=== PATIENT | male | born 1970 | race Caucasian/White ===

== ENCOUNTER 2020-09-21 09:45 | Emergency (ER) | payer SELFPAY ==
--- NOTE | 2020-09-21 10:27 | RAD REPORT ---
EXAM DESCRIPTION: RAD - Chest Single View - 09/21/2020 10:21 am CLINICAL HISTORY: COUGH COMPARISON: No comparisons FINDINGS: No evidence of edema or pneumonia. The heart size is within normal limits.No acute osseous abnormality. No significant pleural effusions or pneumothorax. IMPRESSION: No acute cardiopulmonary disease.
[2020-09-21 10:33] LABS: Urine Blood Trace-intact (Negative); Urine Glucose Negative (Negative); Urine Protein 2+ (Negative); Urine Specific Gravity 1.015 (1.005-1.030)
--- NOTE | 2020-09-21 10:33 | EDPHYS ---
Physician Documentation [facility] Name: Roland Ayala Age: 50 yrs Sex: Male : 1970 Arrival Date: 09/21/2020 Time: 09:52 Bed 17 Private MD: TATIANA Physician Raul Patterson HPI: 09/21 10:02 This 50 yrs old Male presents to ER via Unassigned with complaints of falls sam and etoh abuse. 10:02 Details of fall: The patient fell from an upright position, while walking. Onset: The sam symptoms/episode began/occurred just prior to arrival. Associated injuries: The patient sustained no obvious injury. The patient presents with confusion. Onset: The symptoms/episode began/occurred 2 day(s) ago. Possible causes: alcohol, has a history of chronic alcohol abuse. The patient presents with dizziness, generalized weakness. Context: occurred at home. Associated signs and symptoms: Pertinent positives: ataxia, head injury. 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 - Family history:: not pertinent. - Social history:: Smoking status: Patient reports use of chewing tobacco. Patient uses alcohol, on a daily basis. Patient/guardian denies using street drugs. ROS: 10:02 Constitutional: Negative for fever, chills, and weight loss, Eyes: Negative for injury, sam pain, redness, and discharge, ENT: Negative for injury, pain, and discharge, Neck: Negative for injury, pain, and swelling, Cardiovascular: Negative for chest pain, palpitations, and edema, Respiratory: Negative for shortness of breath, cough, wheezing, and pleuritic chest pain, Abdomen/GI: Negative for abdominal pain, nausea, vomiting, diarrhea, and constipation, Back: Negative for injury and pain, : Negative for injury, bleeding, discharge, and swelling, MS/Extremity: Negative for injury and deformity, Psych: Negative for depression, anxiety, suicide ideation, homicidal ideation, and hallucinations, Allergy/Immunology: Negative for hives, rash, and allergies, Endocrine: Negative for neck swelling, polydipsia, polyuria, polyphagia, and marked weight changes, Hematologic/Lymphatic: Negative for swollen nodes, abnormal bleeding, and unusual bruising. 10:02 Skin: Positive for ecchymosis, of the right arm and left arm. 10:02 Neuro: Positive for altered mental status, dizziness, gait disturbance, weakness. Exam: 10:02 Constitutional: This is a well developed, well nourished patient who is awake, alert, sam and in no acute distress. Head/Face: Normocephalic, atraumatic. Eyes: Pupils equal round and reactive to light, extra-ocular motions intact. Lids and lashes normal. Conjunctiva and sclera are non-icteric and not injected. Cornea within normal limits. Periorbital areas with no swelling, redness, or edema. ENT: Nares patent. No nasal discharge, no septal abnormalities noted. Tympanic membranes are normal and external auditory canals are clear. Oropharynx with no redness, swelling, or masses, exudates, or evidence of obstruction, uvula midline. Mucous membranes moist. Neck: Trachea midline, no thyromegaly or masses palpated, and no cervical lymphadenopathy. Supple, full range of motion without nuchal rigidity, or vertebral point tenderness. No Meningismus. Chest/axilla: Normal chest wall appearance and motion. Nontender with no deformity. No lesions are appreciated. Cardiovascular: Regular rate and rhythm with a normal S1 and S2. No gallops, murmurs, or rubs. Normal PMI, no JVD. No pulse deficits. Respiratory: Lungs have equal breath sounds bilaterally, clear to auscultation and percussion. No rales, rhonchi or wheezes noted. No increased work of breathing, no retractions or nasal flaring. Abdomen/GI: Soft, non-tender, with normal bowel sounds. No distension or tympany. No guarding or rebound. No evidence of tenderness throughout. Back: No spinal tenderness. No costovertebral tenderness. Full range of motion. Male : Normal genitalia with no discharge or lesions. Psych: Awake, alert, with orientation to person, place and time. Behavior, mood, and affect are within normal limits. 10:02 Skin: injury, abrasion(s), contusion(s), that are superficial, of the right arm and left arm. 10:02 Neuro: Orientation: to person, place, Not oriented to time, situation, Mentation: slow to respond, confused, Memory: immediate memory is impaired, remote memory is impaired, recent memory is impaired, Cranial nerves: is grossly normal based on the patient's age, no acute changes, Cerebellar function: unable to test, Sensation: is normal, no obvious gross deficits, appropriate no acute changes, Gait: not tested. Babinski testing is normal, seizure activity, is not displayed by the patient. 10:16 ECG was reviewed by the Attending Physician. [facility] Vital Signs: 10:06 BP 96 / 52; Pulse 82; Resp 18; Temp 98.6(O); Pulse Ox 98% on R/A; Pain 0/10; ap3 10:36 BP 94 / 68; Pulse 73; Resp 16; Pulse Ox 95% on R/A; ap3 11:21 BP 135 / 75; Pulse 76; Resp 18; Pulse Ox 98% on R/A; ap3 MDM: 09:52 Patient medically screened. [facility] 10:06 Differential diagnosis: abrasion, closed head injury, contusion, fracture, multiple sam trauma, alcohol intoxication, hypoglycemia, overdose, sepsis, TIA, UTI, volume depletion, cardiac arrhythmia, CVA, generalized weakness, GI bleed, head injury, sepsis, syncope. Data reviewed: vital signs, nurses notes, EMS record, lab test result(s), EKG, radiologic studies, CT scan, plain films. Data interpreted: lining vamper: rate is 89 beats/min, rhythm is regular, Pulse oximetry: on room air is 100 %. Test interpretation: by ED physician or midlevel provider: ECG, plain radiologic studies. Counseling: I had a detailed discussion with the patient and/or guardian regarding: the historical points, exam findings, and any diagnostic results supporting the discharge/admit diagnosis, lab results, radiology results. 09/21 09:55 Order name: Basic Metabolic Panel [facility] 09/21 09:55 Order name: CBC with Diff [facility] 09/21 09:55 Order name: LFT's [facility] 09/21 09:55 Order name: Magnesium [facility] 09/21 09:55 Order name: NT PRO-BNP [facility] 09/21 09:55 Order name: PT-INR [facility] 09/21 09:55 Order name: Troponin (emerg Dept Use Only) [facility] 09/21 09:55 Order name: Lipase [facility] 09/21 09:55 Order name: Acetaminophen [facility] 09/21 09:55 Order name: ETOH Level [facility] 09/21 09:55 Order name: Ptt, Activated [facility] 09/21 09:55 Order name: Salicylate [facility] 09/21 09:55 Order name: Basic Metabolic Panel [facility] 09/21 09:55 Order name: XRAY Chest (1 view) [facility] 09/21 09:55 Order name: Cardiac monitoring; Complete Time: 10:06 [facility] 09/21 09:55 Order name: EKG - Nurse/Tech; Complete Time: 10:33 [facility] 09/21 09:55 Order name: IV Saline Lock; Complete Time: 10:06 [facility] 09/21 09:55 Order name: CT Head C Spine [facility] 09/21 09:55 Order name: CBC with Automated Diff [facility] 09/21 09:55 Order name: Liver (Hepatic) Function [facility] 09/21 09:55 Order name: Magnesium [facility] 09/21 10:33 Order name: Urine Dipstick-Ancillary [facility] 09/21 09:55 Order name: Labs collected and sent; Complete Time: 10:06 [facility] 09/21 09:55 Order name: O2 Per Protocol; Complete Time: 10:06 [facility] 09/21 09:55 Order name: O2 Sat Monitoring; Complete Time: 10:06 [facility] 09/21 09:55 Order name: Suicide Screening ([place]); Complete Time: 10:51 [facility] 09/21 09:55 Order name: Urine Dipstick-Ancillary (obtain specimen); Complete Time: 10:31 [facility] EC:16 Rate is 80 beats/min. Rhythm is regular. QRS Spurger is Normal. PA interval is normal. QRS sam interval is normal. QT interval is normal. No Q waves. T waves are Normal. No ST changes noted. Clinical impression: NSR w/ Non-specific ST/T Changes and No evidence of ischemia. Interpreted by me. Reviewed by me. Administered Medications: 10:49 Drug: NS 0.9% 1000 ml Route: IV; Rate: 1 bolus; Site: right forearm; ap3 11:37 Follow up: Response: No adverse reaction; IV Status: Completed infusion; IV Intake: ap3 1000ml 10:49 Drug: Thiamine 100 mg Route: IV; Rate: bolus; Site: right forearm; ap3 11:37 Follow up: IV Status: Completed infusion ap3 10:49 Drug: ProTONIX (pantoprazole) 40 mg Route: IVP; Site: right forearm; ap3 11:37 Follow up: Response: No adverse reaction ap3 11:06 Drug: Banana Bag - (NS 0.9% 1000 ml, foLIC Acid 1 mg, Thiamine 100 mg, Multivitamin 1 ap3 amp) Route: IV; Rate: 125 ml/hr; Site: right forearm; 11:36 Follow up: IV Status: Infusion continued upon transfer ap3 11:06 Drug: Vitamin K1 (phytonadione) 5 mg Route: Sub-Q; Site: abdomen; ap3 11:38 Follow up: Response: No adverse reaction ap3 Disposition Summary: 09/21/20 10:32 Transfer Ordered Transfer Location: [facility] Reason: Higher level of care sam Condition: Stable sam Problem: new sam Symptoms: have improved sam Accepting Physician: axel [place] (09/21/20 11:40) ap3 Diagnosis - Traumatic subdural hemorrhage sam - Alcohol abuse with intoxication sam - Repeated falls sam Forms: - Medication Reconciliation Form sam - SBAR form sam Signatures: Dispatcher [employer] EDRaul Perry MD MD cha Prokisch, Amanda, RN RN ap3 Corrections: (The following items were deleted from the chart) 10: 10:20 PMHx: Unable to Obtain; ap3 ap3 10:22 10:20 PSHx: Unable to Obtain; ap3 ap3 11:40 10:32 to [facility] ap3
--- NOTE | 2020-09-21 10:33 | ER ---
Nurse's Notes [facility] Name: Roland Ayala Age: 50 yrs Sex: Male : 1970 Arrival Date: 09/21/2020 Time: 09:52 Bed 17 Private MD: Diagnosis: Traumatic subdural hemorrhage;Alcohol abuse with intoxication;Repeated falls Presentation: 09/21 10:06 Chief complaint: EMS states: patient has been in treatment for alcoholism for a few ap3 days. patient was released yesterday, went to a bar with a friend where he had a "few drinks". Patient was arrested last night and it is reported he fell 3 times while in custody. Patient states he has a history of frequent falls. Coronavirus screen: At this time, the client does not indicate any symptoms associated with coronavirus-19. Ebola Screen: No symptoms or risks identified at this time. Initial Sepsis Screen: Does the patient meet any 2 criteria? No. Patient's initial sepsis screen is negative. Does the patient have a suspected source of infection? No. Patient's initial sepsis screen is negative. Risk Assessment: Do you want to hurt yourself or someone else? Patient reports no desire to harm self or others. Onset of symptoms was September 21, 2020. Care prior to arrival: None. 10:06 Method Of Arrival: EMS ap3 10:06 Acuity: ALMA 3 ap3 Triage Assessment: 10:10 General: Appears in no apparent distress. comfortable, Behavior is calm, cooperative. ap3 Pain: Denies pain. EENT: No signs and/or symptoms were reported regarding the EENT system. Neuro: Level of Consciousness is awake, alert, obeys commands, Oriented to person, place, time, situation, patient is AOx4. However patient is not certain of the details of events that occurred last night. . Cardiovascular: Denies chest pain, lightheadedness, shortness of breath, Capillary refill < 3 seconds Patient's skin is warm and dry. Respiratory: Airway is patent Respiratory effort is even, unlabored, Respiratory pattern is regular, symmetrical. GI: No signs and/or symptoms were reported involving the gastrointestinal system. : No signs and/or symptoms were reported regarding the genitourinary system. Derm: Wound noted right arm Wound is abraision on right elbow. discoloration on right forearm. 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 - Family history:: not pertinent. - Social history:: Smoking status: Patient reports use of chewing tobacco. Patient uses alcohol, on a daily basis. Patient/guardian denies using street drugs. Screenin:12 Abuse screen: Denies threats or abuse. Nutritional screening: No deficits noted. ap3 Tuberculosis screening: No symptoms or risk factors identified. Fall Risk None identified. Fall in past 12 months (25 points). Secondary diagnosis (15 points) impaired mobility, alcoholism. IV access (20 points). Ambulatory Aid- None/Bed Rest/Nurse Assist (0 pts). Gait- Impaired (20 pts.). Mental Status- Oriented to own ability (0 pts). Total Velez Fall Scale indicates High Risk Score (45 or more points). Fall prevention measures have been instituted. Side Rails Up X 2 Placed Close to Nursing Station Frequent Obs/Assessments Occuring As available patient and family educated on Fall Prevention Program and Strategies. Assessment: 10:14 Reassessment: see triage assessment. ap3 10:52 Reassessment: Patient and/or family updated on plan of care and expected duration. Pain ap3 level reassessed. patient is alert, oriented X 4. however he is still confused on past events. He knows his name, , where he is, and time. Patient was updated on current plan of care. 11:04 Reassessment: report called to [facility] to Charlie. ap3 Vital Signs: 10:06 BP 96 / 52; Pulse 82; Resp 18; Temp 98.6(O); Pulse Ox 98% on R/A; Pain 0/10; ap3 10:36 BP 94 / 68; Pulse 73; Resp 16; Pulse Ox 95% on R/A; ap3 11:21 BP 135 / 75; Pulse 76; Resp 18; Pulse Ox 98% on R/A; ap3 ED Course: 09:52 Patient arrived in ED. em1 09:52 Raul Patterson MD is Attending Physician. [facility] 09:58 Inserted saline lock: 20 gauge in right forearm, using aseptic technique. Blood ap3 collected. 10:05 Misty Estrada, LEMUEL is Primary Nurse. ap3 10:09 Triage completed. ap3 10:13 Arm band placed on right wrist. ap3 10:13 Patient has correct armband on for positive identification. Bed in low position. Call ap3 light in reach. Side rails up X2. health information management director on. Pulse ox on. NIBP on. 10:21 XRAY Chest (1 view) In Process Unspecified. EDMS 10:22 CT Head C Spine In Process Unspecified. EDMS 10:27 Urine collected: clean catch specimen, jonny colored. 5 10:31 Urine Drug Screen Sent. [facility] 10:52 Pt visited by personal from rehab facility. ap3 11:37 No provider procedures requiring assistance completed. Patient transferred, IV remains ap3 in place. Administered Medications: 10:49 Drug: NS 0.9% 1000 ml Route: IV; Rate: 1 bolus; Site: right forearm; ap3 11:37 Follow up: Response: No adverse reaction; IV Status: Completed infusion; IV Intake: ap3 1000ml 10:49 Drug: Thiamine 100 mg Route: IV; Rate: bolus; Site: right forearm; ap3 11:37 Follow up: IV Status: Completed infusion ap3 10:49 Drug: ProTONIX (pantoprazole) 40 mg Route: IVP; Site: right forearm; ap3 11:37 Follow up: Response: No adverse reaction ap3 11:06 Drug: Banana Bag - (NS 0.9% 1000 ml, foLIC Acid 1 mg, Thiamine 100 mg, Multivitamin 1 ap3 amp) Route: IV; Rate: 125 ml/hr; Site: right forearm; 11:36 Follow up: IV Status: Infusion continued upon transfer ap3 11:06 Drug: Vitamin K1 (phytonadione) 5 mg Route: Sub-Q; Site: abdomen; ap3 11:38 Follow up: Response: No adverse reaction ap3 Intake: 11:37 IV: 1000ml; Total: 1000ml. ap3 Outcome: 10:32 ER care complete, transfer ordered by . sam 11:38 Transferred by ground EMS Note: [facility] ap3 11:38 Condition: good 11:38 Instructed on the need for transfer, Demonstrated understanding of instructions. 11:40 Patient left the ED. ap3 Signatures: Dispatcher [employer] EDRaul Perry MD MD cha Martinez, Regulo Andressa Severino [facility] Misty Estrada, RN RN ap3 Corrections: (The following items were deleted from the chart) 10:22 10:20 PMHx: Unable to Obtain; ap3 ap3 10:22 10:20 PSHx: Unable to Obtain; ap3 ap3
--- NOTE | 2020-09-21 10:34 | RAD REPORT ---
EXAM DESCRIPTION: CT - [id number] - 09/21/2020 10:23 am CLINICAL HISTORY: Fall, trauma COMPARISON: None. TECHNIQUE: Axial 5 mm thick images of the head were obtained. Axial 2 mm thick images of the cervica l spine were obtained with sagittal and coronal reconstruction images generated and reviewed. All CT scans are performed using dose optimization technique as appropriate and may include automated exposure control or mA/KV adjustment according to patient size. FINDINGS: A small subdural hematoma along the right aspect of the anterior cerebral falx. It measure s 3 millimeters in maximal thickness per No skull fracture is seen. No mass effect or midline shift. No acute large vascular territory infarct are identified. No mastoid effusion. Paranasal sinuses are well aerated. Cervical body height and alignment are normal. No fracture or acute bony abnormality. Mild multileve l cervical spondylosis. No central spinal stenosis or significant neural foraminal narrowing. No paraspinal mass or hematoma. IMPRESSION: Small subdural hematoma along the right aspect of the intracerebral falx. No skull fract ure. No fracture or traumatic malalignment of the cervical spine. Discussed with TATIANA Galo by Dr. Ortiz at 1028 on 09/21/20.
[2020-09-21] MEDS ORDERED: NA CHLORIDE 0.9% 1,000 ML ONE (10:40)
[2020-09-21] MEDS ORDERED: PANTOPRAZOLE 40 MG INJ ONE (10:40)
[2020-09-21] MEDS ORDERED: THIAMINE 200 MG/2 ML INJ ONE (10:40)
[2020-09-21] MEDS ORDERED: FOLIC ACID 1 MG, THIAMINE HCL 100 MG, MULTIVITAMINS INJ 10 ML in NA CHLORIDE 0.9% 1,000 ML IV ONE (11:00)
[2020-09-21] MEDS ORDERED: VITAMIN K (ADULT) 10 MG/ML SQ ONE (11:00)
[2020-09-21 11:49] VITALS: TEMP 98.6
[2020-09-21 11:51] VITALS: BP 135/75; O2SAT 98
[2020-09-21 13:22] LABS: Protime INR 1.49
[2020-09-21 13:26] LABS: Absolute Lymphocytes (CBC) 0.7 K/uL (0.7-4.9); Basophils % 0.9 % (0-1.3); Hematocrit 38.4 % (39.6-49.0); Lymphocytes % 11.8 % (15.3-44.8); MPV 8.6 fL (7.6-11.3); RBC Red Blood Cell Count 3.84 M/uL (4.33-5.43)
[2020-09-21 14:52] LABS: Platelet Estimate DECR; White Blood Cell Scan OK (OK)
[2020-09-21 14:53] LABS: Blood Morphology Comment NOT SEEN (NOT SEEN)
[2020-09-21 18:45] LABS: ALT/SGPT 54 U/L (12-78); AST/SGOT 109 U/L (15-37); Albumin 3.7 g/dL (3.4-5.0); Alkaline Phosphatase 66 U/L (45-117); BUN Blood Urea Nitrogen 15 mg/dL (7-18); Bicarbonate 25 mmol/L (21-32); Bilirubin Direct 1.9 mg/dL (0-0.2); Bilirubin Total 4.6 mg/dL (0.2-1.0); Glucose Level 110 mg/dL (74-106); Lipase 293 U/L (73-393); Magnesium 1.8 mg/dL (1.8-2.4); NT PRO-BNP 689 pg/mL (<125); Potassium 3.4 mmol/L (3.5-5.1); Protein, Total 7.5 g/dL (6.4-8.2); Sodium Level 136 mmol/L (136-145); Troponin (Emerg Dept Use Only) < 0.02 ng/mL (0.0-0.045)
== END 2020-09-21 11:40 | disposition short-term general hospital (02) ==
LOC: ER 09:45
DX: S06.5X0A Traumatic subdural hemorrhage without loss of consciousness, initial encounter (principal); F10.129 Alcohol abuse with intoxication, unspecified; R29.6 Repeated falls; F17.220 Nicotine dependence, chewing tobacco, uncomplicated
CPT/HCPCS: 36415; 70450; 71045; 72125; 80048; 80076; 80320; 80329; 81003; 83690; 83735; 83880; 84484; 85025; 85610; 85730; 96365; 96372; 96375; 99285; C9113; J3411; J3430; J7030; U0003